=== PATIENT | male | born 1965 | race Caucasian/White ===

== ENCOUNTER 2018-01-16 03:36 | Inpatient (IN) | payer SELFPAY ==
[~2018-01-16] VITALS: Ht 177.8 cm; Wt 95.3 kg
[2018-01-16] MEDS ORDERED: MAG HYD/AL HYD/SIMETH 30ML UDC PO PRN (04:55)
[2018-01-16] MEDS ORDERED: LOSA100T63 PO (05:07)
[2018-01-16] MEDS ORDERED: LAMO100T52 PO (05:07)
[2018-01-16] MEDS ORDERED: AMLO-99 PO (05:07)
[2018-01-16] MEDS ORDERED: DOCU-416 PO (05:07)
[2018-01-16] MEDS ORDERED: MELA3TAB31 PO (05:07)
[2018-01-16] MEDS ORDERED: METO25TA93 PO (05:07)
[2018-01-16] MEDS ORDERED: VENL100T22 PO (05:07)
[2018-01-16] MEDS ORDERED: OMEP-125 PO (05:07)
[2018-01-16] MEDS ORDERED: MIRT-25 PO (05:07)
[2018-01-16] MEDS ORDERED: PRAZ1CAP26 PO (05:07)
[2018-01-16 05:35] VITALS: BP 145/106
[2018-01-16] MEDS: ACETAMINOPHEN 325 MG TAB PO PRN ×2 (06:07→14:05)
[2018-01-16] MEDS ORDERED: lamoTRIgine 100 MG TAB PO SCH (09:00)
[2018-01-16] MEDS ORDERED: PRAZOSIN HCL 1 MG CAP PO SCH (09:00)
[2018-01-16 09:35] VITALS: BP 140/98
[2018-01-16] MEDS: amLODIPine BESYL(*) 5 MG TAB PO SCH (09:41)
[2018-01-16] MEDS: VENLAFAXINE XR 75 MG CAPCR PO SCH (09:43)
[2018-01-16] MEDS: PANTOPRAZOLE SOD 40 MG TABEC PO SCH (09:43)
[2018-01-16] MEDS: MULTIVITAMINS TAB PO SCH (09:43)
[2018-01-16] MEDS: METOPROLOL TART 50 MG TAB PO SCH ×2 (09:43→20:21)
[2018-01-16] MEDS: LOSARTAN POTASSIUM 50 MG TAB PO SCH (09:43)
[2018-01-16] MEDS: DOCUSATE SODIUM 100 MG CAP PO SCH ×2 (09:43→20:21)
[2018-01-16] MEDS ORDERED: lamoTRIgine 100 MG TAB PO ONE (13:20)
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
[2018-01-16] MEDS: MELATONIN 3 MG TAB PO SCH (20:21)
[2018-01-16] MEDS: MIRTAZAPINE 30 MG TAB 30 MG TAB PO SCH (20:21)
[2018-01-16] MEDS: PRAZOSIN HCL 1 MG CAP PO SCH (20:46)
[2018-01-17 01:49] VITALS: BP 151/101
[2018-01-17] MEDS: PANTOPRAZOLE SOD 40 MG TABEC PO SCH (08:17)
[2018-01-17] MEDS: DOCUSATE SODIUM 100 MG CAP PO SCH ×2 (08:17→21:12)
[2018-01-17] MEDS: amLODIPine BESYL(*) 5 MG TAB PO SCH (08:17)
[2018-01-17] MEDS: MULTIVITAMINS TAB PO SCH (08:17)
[2018-01-17] MEDS: lamoTRIgine 100 MG TAB PO SCH (08:18)
[2018-01-17] MEDS: LOSARTAN POTASSIUM 50 MG TAB PO SCH (08:18)
[2018-01-17] MEDS: VENLAFAXINE XR 75 MG CAPCR PO SCH (08:18)
[2018-01-17] MEDS: METOPROLOL TART 50 MG TAB PO SCH ×2 (08:18→21:13)
[2018-01-17 12:55] VITALS: BP 120/80
[2018-01-17 20:54] VITALS: BP 112/85
[2018-01-17] MEDS: MIRTAZAPINE 30 MG TAB 30 MG TAB PO SCH (21:12)
[2018-01-17] MEDS: MELATONIN 3 MG TAB PO SCH (21:13)
[2018-01-17] MEDS: PRAZOSIN HCL 1 MG CAP PO SCH (21:13)
[2018-01-18 04:20] VITALS: BP 99/68
[2018-01-18] MEDS: MULTIVITAMINS TAB PO SCH (08:06)
[2018-01-18] MEDS: DOCUSATE SODIUM 100 MG CAP PO SCH (08:06)
[2018-01-18] MEDS: PANTOPRAZOLE SOD 40 MG TABEC PO SCH (08:06)
[2018-01-18] MEDS: LOSARTAN POTASSIUM 50 MG TAB PO SCH (08:06)
[2018-01-18] MEDS: METOPROLOL TART 50 MG TAB PO SCH (08:07)
[2018-01-18] MEDS: amLODIPine BESYL(*) 5 MG TAB PO SCH (08:07)
[2018-01-18] MEDS: lamoTRIgine 100 MG TAB PO SCH (08:07)
[2018-01-18] MEDS: VENLAFAXINE XR 75 MG CAPCR PO SCH (08:07)
[2018-01-18] MEDS: ACETAMINOPHEN 325 MG TAB PO PRN (08:13)
--- NOTE | 2018-01-18 09:58 | BHS Progress Note ---
[facility] - Subjective Progress Notes Subjective Patient interacting well today with treatment team staff, and outpatient therapist on the phone. Patient does report ongoing depression, but reports some improvement in symptoms, and no longer feels the intention to complete suicide. Patient reports alcohol intoxication which is rare for him, leads to a low mood. Patient open to conversation about the importance of using a c-pap machine, which has been diagnosed in the past. Will continue emergency detainment, and continue current medications. Will also continue to look into potential ways to make treatment of sleep apnea more affordable in [facility], upon snf. Suicidal Ideation: None Homicidal Ideation: None [facility] - Objective Physical Exam Vital Signs Vital Signs Date Time Temp Pulse Resp B/P (MAP) Pulse Ox O2 Delivery O2 Flow Rate FiO2 01/18/18 04:20 98.6 63 15 99/68 (78) 89 Nasal Cannula 2.0 01/18/18 01:00 30.0 Muscle Strength and Tone: WNL Gait and Station: Steady [facility] Medications Reviewed: Side Effects, Benefits of Medication, Risks Allergies Reviewed: Yes Mental Status Exam General Appearance: Casual, Well Groomed, Good Eye Contact, Cooperative, Polite , Good Interaction, No Unkept, No Tearful, No Psychomotor Agitation, Psychomotor Retardation (some), No Bizarre Mannerisms, No Tics Speech: Clear, Spontaneous, Normal Rate, Normal Rhythm, Normal Volume, Normal Tone Mood: Dysthmic/Depressed (improving ) Affect: Calm, No Sad, Neutral, No Tearful, No Anxious, No Agitated Thought Process: Organized, Logical, Goal Directed, No Loose Associations, No Flight of Ideas Thought Content: No Suicidal Ideation (resolved, likely alcohol is a contributer to acute suicidality. ), No Homicidal Ideation, No Delusions, No Auditory Halllucinations, No Visual Hallucinations, No Thought Broadcasting, No Ideas of Reference, No Obsessions, No Compulsions Sensorium: Clear Cognition: Alert & Oriented-Person, Alert & Oriented-Place, Alert & Oriented- Time, Esxgw-Dzovwvgm-Enlpuxdci Memory: Immediate, Recent, Remote Intelligence: Average Insight Judgment: Fair (improving. ) [facility] Assessment and Plan Posd-[id number] Encounter Date: January 18, 2018 Rvts-wp-Rcib Encounter Time: 09:00 Tobacco Medications: Not Appropriate Condition Multpiple Antipsychotics Used: No Problems: (1) Major depression, recurrent Status: Chronic (2) Sleep apnea with use of continuous positive airway pressure (CPAP) Status: Chronic Condition 1. continue treatment. 2. can possibly discharge today to care of family 3. will look into affordability of treatment in [place], regarding daytime O2 and sleep apnea. Problem Qualifiers (1) Major depression, recurrent: Major depression episode severity: moderate RADHA MONTIEL MD January 18, 2018 09:58
[2018-01-18 10:10] VITALS: BP 136/108
[2018-01-18] MEDS ORDERED: MULT-1335 PO (11:13)
--- NOTE | 2018-01-19 18:04 | DISCHARGE SUMMARY ---
Patient was seen in the a.m. of January 18, 2018 at approximately 1000 hours for note concerning this dictation. FINAL DIAGNOSES PER DSM-V Major depression, recurrent, moderate. Rule out mood disorder secondary to general medical condition. Uncontrolled obstructive sleep apnea. Patient reporting supportive relationship with some family members. Some maladaptive personality traits may be present. Rule out posttraumatic stress disorder. REASON FOR ADMISSION This is an overall pleasant and cooperative 52-year-old male who has a long history of psychiatric contact with multiple suicide attempts. Please see history and physical for full details. Patient was grossly intoxicated, which he attributes to adding to the stressors he was already under, including recent attempted suicide by an acquaintance. Again, please see H and P for details. Patient admitted after becoming suicidal and police were contacted. He was on an emergency detainment from [place]. Patient was cooperative on the unit in the absence of alcohol. Patient's mood improved. Patient was continued on current medications, with Lamictal increased to 150 mg daily. Patient strongly encouraged to re-engage wearing of BiPAP/CPAP machine which patient has at home in the [place] area. [facility] outpatient provider was contacted. They are aware of the patient and are willing to help patient when he returns home. Emergency detainment was eventually dropped. The patient's mood improved. Patient did take an active role in treatment, and patient was discharged to the care of family members. PHYSICAL EXAM GENERAL: Please see emergency room note. Notable for a 52-year-old male in no acute medical distress at the time of admission. VITAL SIGNS: At the time of discharge included temperature of 97.9, pulse 71, respiratory rate 15, blood pressure 136/108 and pulse oximetry 88 on room air. LABORATORY DATA Please refer to electronic record for H and P and laboratory data from [facility]. MENTAL STATUS EXAMINATION AT THE TIME OF DISCHARGE GENERAL APPEARANCE, BEHAVIOR AND ATTITUDE: This is a cooperative 52-year-old male making good eye contact, interacting well with this provider, other staff members and his mother on the phone. No bizarre mannerisms or tics. No periods of tearfulness. SPEECH: Within normal limits, regular rate, rhythm volume and tone. MOOD: Described as okay. AFFECT: Continues to be constricted, and mood congruent in some ways. THOUGHT PROCESSES: Appeared logical, goal directed. Patient wanting to return home. No loose associations or flight of ideas. THOUGHT CONTENT: Free of auditory or visual hallucinations, ideas of reference , thought broadcastings, delusions, obsessions, compulsions. Patient adamantly denying suicidal or homicidal ideation at the time of discharge. SENSORIUM: Clear. COGNITION: Alert and oriented to person, place, time and situation. MEMORY: Immediate, recent and remote estimated intact. INTELLIGENCE: Average based on interview. INSIGHT AND JUDGMENT: Considered grossly intact and appropriate for ongoing outpatient care in the absence of alcohol use. RESULTS OF TESTING IMAGING: None. LABORATORY DATA: See above. CONSULTATIONS: None. TREATMENT Patient received medications, participated in individual and group therapy. HOSPITAL COURSE Patient was cooperative throughout his stay. Alcohol withdrawal was not found to be concerning in this patient who did present with alcohol intoxication initially to the [facility]. Largely patient's outpatient medications re continued. Patient was given much education regarding the necessity of wearing, believed to be a BiPAP machine which patient has at home. He has diagnosed sleep apnea and, and contact was made with [facility] to assure proper followup regarding BiPAP machine as well as oxygen that could be used during the day in this patient with low daytime and nighttime O2 sats. CONDITION OF PATIENT ON DISCHARGE Stable. Considered minimal risk to himself or others in the absence of alcohol. DISPOSITION Patient was discharged to home in the care of responsible family members. Patient would follow up with outpatient medication management and therapy as scheduled. He agreed to refrain from using any alcohol. He would wear O2 nasal cannula daily at 1L and continue with BiPAP machine at night. Crisis line was given should symptoms return. MEDICATIONS AT THE TIME OF DISCHARGE !. Colace 100 mg twice daily. 2. Cozaar 100 mg daily. 3. Effexor XR 300 mg daily. 4. Lopressor 25 mg twice daily. 5. Lamictal 150 mg daily. 6. Melatonin 3 mg at bedtime. 7. Minipress 1 mg at bedtime. 8. Norvasc 10 mg daily. 9. Omeprazole daily. 10. Remeron 30 mg at bedtime. 11. Multivitamin with minerals daily. Risks, benefits and alternatives of the above discharge plan were discussed. Informed consent was given to proceed with above discharge plan by this patient , patient's family members and outpatient providers. [facility]
== END 2018-01-18 16:55 | disposition home or self-care (01) | DRG 885 ==
LOC: BHS 03:36
PROVIDERS: ADMIT Psychiatry & Neurology Psychiatry; ATTEND Psychiatry & Neurology Psychiatry
DX: F33.1 Major depressive disorder, recurrent, moderate (principal); R45.851 Suicidal ideations; F43.10 Post-traumatic stress disorder, unspecified; F60.9 Personality disorder, unspecified; I10 Essential (primary) hypertension; G47.33 Obstructive sleep apnea (adult) (pediatric); M54.2 Cervicalgia; G25.81 Restless legs syndrome; M19.90 Unspecified osteoarthritis, unspecified site; Z91.5 Personal history of self-harm; Z62.810 Personal history of physical and sexual abuse in childhood; Z97.3 Presence of spectacles and contact lenses; F10.929 Alcohol use, unspecified with intoxication, unspecified; Y90.6 Blood alcohol level of 120-199 mg/100 ml; G89.29 Other chronic pain
CPT/HCPCS: 94660